=== PATIENT | female | born 1945 | race Caucasian/White ===

== ENCOUNTER 2017-11-12 09:16 | Emergency (ER) | payer MEDICARE ==
[2017-11-12] MEDS ORDERED: cefTRIAXone VIAL(*) 1,000 MG VIAL IVPB ONE (09:46)
[2017-11-12] MEDS ORDERED: Albuterol 2.5 MG/3 ML NEB.SOL* (0.083%) INH ONE (09:47)
[2017-11-12] MEDS ORDERED: Albuterol/Ipratropium NEB.SOL* Albuterol 2.5 MG/Ipratropium 0.5 MG 3 ML INH ONE (09:47)
[2017-11-12] MEDS ORDERED: methylPREDNISolone 125 MG* 2 ML VIAL IV ONE (09:47)
--- NOTE | 2017-11-12 10:11 | RAD ---
HISTORY: Cough, short of breath COPD COMPARISONS: None VIEWS: 4: Frontal dual-energy and lateral views of the chest. FINDINGS: CARDIOMEDIASTINAL SILHOUETTE: The cardiomediastinal silhouette is normal. JEANMARIE: The jeanmarie are normal. PLEURA: The costophrenic angles are sharp. No pleural abnormalities are noted. LUNG PARENCHYMA: There is hyperinflation with flattening of the diaphragm and expansion of the AP diameter of the chest. ABDOMEN: The upper abdomen is clear. There is no subphrenic gas. BONES AND SOFT TISSUES: No bone or soft tissue abnormalities are noted. OTHER: None. IMPRESSION: HYPERINFLATION, CONSISTENT WITH COPD. NO ACTIVE CARDIOPULMONARY DISEASE.
--- NOTE | 2017-11-12 10:15 | UC ---
Respiratory Complaint HPI - HPI Summary HPI Summary: Cough and congestion for about one week. She has copd and uses CPAP at night. She has more sob than usual. SHe has chronic tiera lower extremity swelling that is not any worse than baseline. She denies fever. No hemoptysis. She does not use o2 at home. No chest pain or cardiac ischemic equivalents. - History of Current Complaint Chief Complaint: UCRespiratory Stated Complaint: SOB Time Seen by Provider: 11/12/17 09:37 Hx Obtained From: Patient, Family/Loss Prevention Leader ?: No Onset/Duration: Gradual Onset, Lasting Days, Still Present Severity Initially: Moderate Severity Currently: Moderate Character: Cough: Nonproductive, Cough: Productive Aggravating Factors: Deep Breaths, Recumbent Position Alleviating Factors: Nothing Associated Signs And Symptoms: Positive: Dyspnea, Wheezing, Edema, URI, Nasal Congestion. Negative: Fever, Pleuritic Chest Pain, Hemoptysis, Calf Pain, Calf Swelling, Sinus Discomfort - Allergies/Home Medications Allergies/Adverse Reactions: Allergies Allergy/AdvReac Type Severity Reaction Status Date / Time No Known Allergies Allergy Verified 11/12/17 09:26 Home Medications: Home Medications Albuterol/Ipratropium RESP(NF) [Combivent Respimat(NF)] 1 aer IN 11/12/17 [ History] Alendronate (NF) [Fosamax (NF)] 70 mg PO MONTHLY 11/12/17 [History Confirmed 01/25] Aspirin EC Low Dose* [Ecotrin EC Low Dose 81 MG*] 81 mg PO DAILY 11/12/17 [ History Confirmed 11/12/17] Bisacodyl EC TAB* [Dulcolax EC TAB*] 5 mg PO DAILY PRN 11/12/17 [History Confirmed 11/12/17] Budesonide/Formote 160/4.5(NF) [Symbicort 160/4.5 (NF)] 1 puff INH BID 11/12/17 [History Confirmed 11/12/17] Calcium 600 mg PO BID 11/12/17 [History Confirmed 11/12/17] Furosemide TAB* [Lasix TAB*] 20 mg PO DAILY 11/12/17 [History Confirmed 11/12/17 ] Lisinopril TAB* [Prinivil TAB*] 10 mg PO DAILY 11/12/17 [History Confirmed 11/12] Omeprazole CAP* [Prilosec CAP* 20 MG] 20 mg PO DAILY 11/12/17 [History Confirmed 11/12/17] PMH/Surg Hx/FS Hx/Imm Hx Previously Healthy: No - copd. - Surgical History Surgical History: Yes Surgery Procedure, Year, and Place: Right Upper Lobectomy, 2013, [facility]; C- Section, 1966 - Family History Known Family History: Positive: Other - no related respiratory illness. - Social History Lives: With Family Alcohol Use: None Substance Use Type: None Smoking Status (MU): Heavy Every Day Tobacco Smoker Type: Cigarettes Amount Used/How Often: 2 PPD Length of Time of Smoking/Using Tobacco: Since Age 17 Household Exposure Type: Cigarettes - Immunization History Most Recent Influenza Vaccination: August 2017 Most Recent Pneumonia Vaccination: 2015 Review of Systems ENT: Sinus Congestion Respiratory: Shortness Of Breath, Cough All Other Systems Reviewed And Are Negative: Yes Physical Exam Triage Information Reviewed: Yes Appearance: Well-Nourished Vital Signs: Initial Vital Signs Temp 98.2 F 11/12/17 09:26 Pulse 68 11/12/17 09:26 Resp 30 11/12/17 09:26 BP 168/85 11/12/17 09:26 Pulse Ox 93 11/12/17 09:26 Vital Signs Reviewed: Yes Eye Exam: Normal Eyes: Positive: Conjunctiva Clear ENT: Positive: Normal ENT inspection, Nasal congestion, TMs normal, Hoarse voice , Uvula midline. Negative: Pharyngeal erythema, Nasal drainage, TM bulging, TM dull, TM red, Tonsillar swelling, Tonsillar exudate, Trismus, Sinus tenderness Neck: Positive: Supple, Nontender, No Lymphadenopathy Respiratory Exam: Other - she is tachypnic at RR of 30. HR is wnl. No retractions and she is talking in full sentences. Respiratory: Positive: Lungs clear, Normal breath sounds, No respiratory distress, No accessory muscle use, Decreased breath sounds, Rhonchi, Wheezing. Negative: Accessory muscle use, Crackles, Stridor Cardiovascular: Positive: RRR, No Murmur, Brisk Capillary Refill. Negative: Tachycardia Abdomen Description: Positive: Soft. Negative: Distended, Guarding Musculoskeletal: Positive: Edema @ - tiera LE that is chronic per patient and relative. Neurological: Positive: Alert, Muscle Tone Normal. Negative: Fatigued, Lethargic, Unresponsive, Abnormal Muscle Tone Psychological: Positive: Normal Response To Family, Age Appropriate Behavior Skin: Negative: rashes UC Diagnostic Evaluation - Laboratory O2 Sat by Pulse Oximetry: 95 - Radiology Xray Interpretation: No Acute Changes Radiology Interpretation Completed By: Radiologist - EKG Cardiac Rate: NL Cardiac Rhythm: Sinus: Normal Ectopy: None ST Segment: Normal Re-Evaluation - Re-Evaluation First Eval Change: Unchanged - We have had her for about 2 hours now and despite our aggressive treatment, she still is tachypneic and not feeling any better per her and her relative. SHe would like to go to ED for possible admission. Respiratory Course/Dx - Course Course Of Treatment: congestion cough and copd exacerbation without any evidence of lobar pnuemonia or sirs criteria. if she improves after our aggressive treatment, we may be able to discharge. She is currently 96% on RA and HR is wnl. - Differential Dx/Diagnosis Differential Diagnosis/HQI/PQRI: Aspiration, Bronchitis, Pulmonary Edema, Influenza, Laryngitis, Lower Resp Infection, MRSA, Pneumothorax, Pulmonary Embolism, SARS, Sinusitis, Tuberculosis Provider Diagnoses: acute copd exacerbation. acute bronchitis. Discharge - Discharge Plan Condition: Guarded Disposition: TRANS HIGHER LVL OF CARE FAC Referrals: Izzy Quinteros MD [Primary Care Provider] -
[2017-11-12 11:27] VITALS: BP 124/55
== END 2017-11-12 11:30 | disposition short-term general hospital (02) ==
LOC: UCCORT 09:16
DX: J44.1 Chronic obstructive pulmonary disease with (acute) exacerbation (principal); Z79.82 Long term (current) use of aspirin; F17.210 Nicotine dependence, cigarettes, uncomplicated
CPT/HCPCS: 71046; 87502; 93005; 96374; 96375; 99213; A9270-GY; G0463; J0696; J2930

== ENCOUNTER 2019-12-06 14:09 | Emergency (ER) | payer MEDICARE ==
[2019-12-06 15:09] VITALS: BP 127/48
--- NOTE | 2019-12-06 15:34 | UC ---
Shoulder Pain HPI - HPI Summary HPI Summary: Pt presents with c/o left side neck, shoulder and arm pain that began 3 days post fall from standing height on 12/01/19. Pt has hx of lung cancer and had right upper lobectomy in 2012 at [facility] - History of Current Complaint Chief Complaint: UCUpperExtremity Stated Complaint: SP FALL-LT SIDE PAIN Time Seen by Provider: 12/06/19 15:29 Hx Obtained From: Patient ?: No Onset/Duration: Sudden Onset, Lasting Days, Still Present Timing: Constant Severity Initially: Mild Severity Currently: Moderate Location Of Pain: Is Discrete @ - left side neck,clavicle, and shoulder. Pain is reproducible with palpation. Pain Intensity: 8 Character: Dull, Aching, Stiffness Aggravating Factor(s): Movement Alleviating Factor(s): Rest Associated Signs And Symptoms: Positive: Negative Related History: Dominant Hand Right - Risk Factors Non-Orthopedic Risk Factor: Negative DVT Risk Factors: Malignancy Septic Arthritis Risk Factor: Negative - Allergies/Home Medications Allergies/Adverse Reactions: Allergies Allergy/AdvReac Type Severity Reaction Status Date / Time No Known Allergies Allergy Verified 12/06/19 14:53 Home Medications: Home Medications Calcium Carbonate [Calcium] 600 mg PO BID 12/06/19 [History Confirmed 12/06/19] PMH/Surg Hx/FS Hx/Imm Hx Previously Healthy: No Respiratory History: COPD Cancer History: Lung Cancer - Surgical History Surgical History: Yes Surgery Procedure, Year, and Place: Right Upper Lobectomy, 2012, [facility]; C- Section, 1965 - Family History Known Family History: Positive: Other - no related respiratory illness. - Social History Occupation: Retired Lives: With Family Alcohol Use: None Substance Use Type: None Smoking Status (MU): Former Smoker Type: Cigarettes Amount Used/How Often: 2 PPD Length of Time of Smoking/Using Tobacco: Since Age 17 Have You Smoked in the Last Year: Yes When Did the Patient Quit Smoking/Using Tobacco: 11/28/2019 Household Exposure Type: Cigarettes - Immunization History Most Recent Influenza Vaccination: August 2017 Most Recent Pneumonia Vaccination: 2016 Vaccination Up to Date: Yes Review of Systems All Other Systems Reviewed And Are Negative: Yes Constitutional: Positive: Negative Skin: Positive: Negative Eyes: Positive: Negative ENT: Positive: Negative Respiratory: Positive: Shortness Of Breath - chronic Cardiovascular: Positive: Negative - denies chest pain Gastrointestinal: Positive: Negative Genitourinary: Positive: Negative Motor: Positive: Decreased ROM - left shoulder Neurovascular: Positive: Negative Musculoskeletal: Positive: Arthralgia - left shoulder, left side neck,, Decreased ROM, Myalgia Neurological: Positive: Negative Psychological: Positive: Negative Is Patient Immunocompromised?: No Physical Exam Triage Information Reviewed: Yes Appearance: Ill-Appearing, Pain Distress Vital Signs: Initial Vital Signs Temp 98.5 F 12/06/19 14:59 Pulse 57 12/06/19 14:59 Resp 30 12/06/19 14:59 BP 127/48 12/06/19 14:59 Pulse Ox 100 12/06/19 14:59 Vital Signs Reviewed: Yes Eye Exam: Normal ENT Exam: Normal Dental Exam: Normal Neck exam: Normal Respiratory: Positive: Normal breath sounds, Other: - pt uses O2 by NC at 2 L. Cardiovascular Exam: Normal Musculoskeletal: Positive: Strength Limited @ - left shoulder painful, ROM Limited @ - left shoulder, painful Neurological Exam: Normal Psychological Exam: Normal Skin Exam: Normal Diagnostics - Radiology No standard instances Radiology Interpretation Completed By: Radiologist - Adjunct Psychology Faculty Member: Alden Doyle Daniel, ([id number]) Benzene Worker: JEMMA (NUANCE) Report Date: 12/06/2019 16:19:00 Report Status: Final Start of Report Content ====== Patient Name: ANCELMO RAMOS Medical Record#: [id number] Ordering Physician: Mulu Palm SENIOR ASIC DESIGN ENGINEER Acct.#: [id number] : 1945 Age: 74 Sex: F Location: [facility] Exam Date: 12/06/191533 ADM Status: REG ER Order Information: SHOULDER LEFT 2+ VWS Accession Number: [id number] CPT : 04169 HISTORY: fall from standing on 12/01 . COMPARISONS: None relevant available at the time of dictation. VIEWS: 4, Frontal internal rotation, external rotation, outlet, and axillary views of the left shoulder FINDINGS: BONE DENSITY: There is diffuse osteopenia. BONES: There is no displaced fracture. JOINTS: There is mild osteoarthritis of the a.c. and glenohumeral joints. ALIGNMENT: There is no dislocation. SOFT TISSUES: Unremarkable. OTHER FINDINGS: None. IMPRESSION: OSTEOPENIA. NO ACUTE OSSEOUS INJURY. THE DEGREE OF OSTEOPENIA MAY MAKE A NONDISPLACED FRACTURE RADIOGRAPHICALLY OCCULT. IF SYMPTOMS PERSIST, RECOMMEND REPEAT IMAGING. <Electronically signed by Alden Doyle MD in OV > 12/06/191615 Dictated By: Alden Doyle MD Dictated Date/Time: 1614 Transcribed Date/Time: 12/06/191614 Copy to: CC:Izzy Quinteros MD; Mulu Palm NP; Vickie Grace MD Imaging - [facility] - [facility] - [facility] [address] [address] ph ) ph [phone]) ph ([phone]) End of Report Content ==== Shoulder Course/Dx - Differential Dx/Diagnosis Differential Diagnosis/HQI/PQRI: Arthritis, Dislocation, Fracture (Closed), Sprain, Tendonitis Provider Diagnosis: Left shoulder pain Discharge ED - Sign-Out/Discharge Documenting (check all that apply): Patient Departure All imaging exams completed and their final reports reviewed: Yes - Discharge Plan Condition: Stable Disposition: HOME Patient Education Materials: Arthralgia (ED), Shoulder Pain (ED) Referrals: Izzy Quinteros MD [Primary Care Provider] - As Soon As Possible - Billing Disposition and Condition Condition: STABLE Disposition: Home
== END 2019-12-06 16:34 | disposition home or self-care (01) ==
LOC: UCCORT 14:09
DX: M25.512 Pain in left shoulder (principal); J44.9 Chronic obstructive pulmonary disease, unspecified; Z85.118 Personal history of other malignant neoplasm of bronchus and lung; Z87.891 Personal history of nicotine dependence
CPT/HCPCS: 99211; G0463